=== PATIENT | male | born 1965 | race Caucasian/White ===

== ENCOUNTER 2020-12-11 10:19 | Emergency (ER) | payer OTHER, SELFPAY ==
[2020-12-11 10:20] VITALS: BP 148/93; PULSE 64; RESP 21; TEMP 36.9; O2SAT 98; BMI 29.0
--- NOTE | 2020-12-11 10:50 | HMH.EDUTC ---
[facility] [place] Impression: Laceration Disposition: Home, Self-Care Condition on Discharge: Good Instructions: Laceration Repair, DI for Laceration Repair -- Simple Additional Instructions: Suture instructions: You have required stitches Please read the following instructions so you know how to care for them: 1. Keep wound area dry for the first 24 hours. 2 May clean gently with mild soap and water, after 48 hours to prevent crusting over suture knots. 3. You may shower if your provider gives permission but do not take a bath until the skin is healed.. 4. Never leave a wet dressing or Band-Aid on your stitches as this allows bacteria to reach the area and may cause infection. Band-aids can cause the wound to sweat and not recommended to wear for long periods of time Watch for signs of infection: Increasing redness, tenderness or warmth around the suture site Unusual swelling around the site Appearance of pus around each suture or any red streaks Fever If you develop any of the above signs or symptoms of infection, Follow up with Family Physician immediately 5. Suture removal in __7__days 6. Return to [facility] or follow up with family doctor for removal. This can be done by any medical provider during regular hours on Friday through Friday, by appointment. Referrals: Kurt Vásquez MD [Primary Care Provider] - As needed Time of Disposition: 11:41 Medical Decision Making - Luis Inquiry Pt receiving controlled substance: No Luis was queried for this patient: No Vital Signs: 12/11/20 10:20 12/11/20 11:48 Temperature 98.4 F 98.4 F Temperature Source Oral Pulse Rate 64 Pulse Rate [Right Brachial] 64 Respiratory Rate 21 21 Blood Pressure 148/93 H Blood Pressure [Right Arm] 148/93 H Blood Pressure Mean [Right Arm] 111 Blood Pressure Source [Right Arm] Automatic Cuff Blood Pressure Position [Right Arm] Sitting 02 Sat by Pulse Oximetry 98 Oxygen Delivery Method Room Air Orders (Tests/Meds): ED MEDICATIONS Discontinued Medications Generic Name Dose Route Start Last Admin Trade Name Freq PRN Reason Stop Dose Admin Tetanus/Reduced Diphtheria/Acell Pertussis 0.5 ml 12/11/20 10:37 12/11/20 10:40 Tet/Diphth/Pert-Adult 0.5ml Syringe IM 12/11/20 10:38 0.5 ml .ONCE ONE Administration [facility] [place] - General Stated complaint: ao head laceration 12/11/20 Time Seen by Provider: 12/11/20 10:50 Mode of Arrival: Ambulatory Source of Information: Patient Limitations: No Limitations Description of Symptoms (Recalled from Triage Doc. by RN): PATIENT C/O LACERATION TO HEAD AFTER BOARD FELL ON IT THIS AM. HE IS NOT UP TO DATE ON TDAP HEENT Symptoms (Recalled from RN notes): Yes Resp Symptoms (Recalled from RN notes): No Skin Symptoms (Recalled from RN notes): Yes MS Symptoms (Recalled from RN notes): No Functional Status (Recalled from RN notes): WNL - History of Present Illness Provider Complaint: Patient states that he was pulling a board down when the corner of the board struck him in the top of his head on the right side States that at first he didnt realize he was cut but felt something warm and noticed he had blood running down his face and noticed he had a cut States that he immediately applied pressure and came in Denies LOC denies vision problems - Related Data Home Medications Medication Instructions Recorded Confirmed naproxen sodium 220 mg capsule 220 mg PO Q12H 11/15/19 12/11/20 Previous Rx's Medication Instructions Recorded empagliflozin 10 mg tablet 10 mg PO DAILY #30 tab 11/15/19 cholecalciferol (vitamin D3) 1,250 See Rx Instructions .ROUTE 06/26/20 mcg (50,000 unit) capsule .COMPLEX #7 cap cholecalciferol (vitamin D3) 50 See Rx Instructions .ROUTE 06/26/20 mcg (2,000 unit) capsule .COMPLEX #90 cap glipizide 2.5 mg tablet, extended See Rx Instructions .ROUTE 10/31/20 release 24 hr .COMPLEX #90 tab amlodipine 5 mg tablet See Rx Instructions .ROUTE 12/07
[2020-12-11 11:48] VITALS: BP 148/93; PULSE 64; RESP 21; TEMP 36.9; O2SAT 98
== END 2020-12-11 11:50 | disposition home or self-care (01) ==
PROVIDERS: Emergency Provider Nurse Practitioner; PCP Emergency Medicine
DX: S01.01XA Laceration without foreign body of scalp, initial encounter (principal); Z23 Encounter for immunization; W22.8XXA Striking against or struck by other objects, initial encounter; Y92.89 Other specified places as the place of occurrence of the external cause; I10 Essential (primary) hypertension; E78.5 Hyperlipidemia, unspecified; E11.9 Type 2 diabetes mellitus without complications; Z79.84 Long term (current) use of oral hypoglycemic drugs; Z79.899 Other long term (current) drug therapy
CPT/HCPCS: 12001; 90471; 90715; 99202; G0463

== ENCOUNTER → 2020-12-11 13:19 | Outpatient (CLI) | payer OTHER, SELFPAY ==
[2020-12-11 13:36] LABS: Basophils # 0.1 K/mm3 (0-0.2); Eosinophils # 0.1 K/mm3 (0.0-0.4); Eosinophils % 1.3 % (0.1-12.0); Hematocrit 39.6 % (42.0-52.0); Hemoglobin 13.7 g/dL (14.1-18.0); Lymphocytes # 1.7 K/mm3 (0.7-4.5); Lymphocytes % 21.6 % (10-50); Mean Corpuscular HGB Conc 34.6 g/dL (31.8-35.4); Mean Corpuscular Hemoglobin 30.4 pg (27.0-31.2); Mean Corpuscular Volume 87.9 fl (80-94); Mean Platelet Volume 8.5 fl (7.4-10.4); Monocytes # 0.4 K/mm3 (0.1-1.0); Monocytes % 5.5 % (1.7-9.3); Neutrophils # 5.5 K/mm3 (1.8-7.8); Neutrophils % 70.7 % (37.0-80.0); Platelet Count 330 K/mm3 (142-424); Red Blood Count 4.51 M/mm3 (4.60-6.20); Red Cell Distribution Width 13.1 % (11.5-17.5); White Blood Count 7.7 K/mm3 (4.8-10.8)
[2020-12-11 13:41] LABS: Alanine Aminotransferase 18 U/L (12-78); Albumin Level 4.3 g/dl (3.5-5.0); Albumin/Globulin Ratio 1.6 (1.1-1.8); Alkaline Phosphatase 88 U/L (38-126); Anion Gap 14.5 mEq/L (5-15); Aspartate Amino Transferase 23 U/L (17-59); Bilirubin,Total 0.3 mg/dl (0.2-1.3); Blood Urea Nitrogen 27 mg/dl (9-20); Calcium 9.3 mg/dl (8.4-10.2); Carbon Dioxide 27 mmol/L (22.0-30.0); Chloride 104 mmol/L (98-107); Chol/HDL Ratio 4.3 (1-3.5); Cholesterol 137 mg/dl (140-200); Estimated Glomerular Filt Rate 141 ml/min (>60); GFR (African American) 171 ML/MIN (>60); Globulin 2.7 g/dL (1.3-3.2); Glucose 160 mg/dl (74-100); HDL Cholesterol 32 mg/dl (40-60); Potassium 4.5 mmoL/L (3.5-5.1); Sodium 141 mmol/L (136-145); Triglycerides 150 mg/dl (30-150); VLDL Cholesterol 30 mg/dL (0-40)
[2020-12-11 13:52] LABS: Direct LDL Cholesterol 71.49 mg/dL (100-129)
[2020-12-11 14:12] LABS: Prostate Specific Ag Screen 0.5 ng/ml (0.0-4.0); Thyroid Stimulating Hormone 1.98 uIU/mL (0.465-4.68)
[2020-12-11 15:05] LABS: Hemoglobin A1C 5.7 % (4.0-6.0)
== END ==
PROVIDERS: Visit Provider Family Medicine
DX: Z00.00 Encounter for general adult medical examination without abnormal findings (principal); Z12.5 Encounter for screening for malignant neoplasm of prostate; E11.9 Type 2 diabetes mellitus without complications; I10 Essential (primary) hypertension; E78.5 Hyperlipidemia, unspecified; Z79.84 Long term (current) use of oral hypoglycemic drugs
CPT/HCPCS: 80053; 80061; 83036; 84443; 85025; G0103

== ENCOUNTER → 2022-08-16 10:59 | Outpatient (CLI) | payer OTHER, SELFPAY ==
[2022-08-16 18:00] LABS: Adenovirus,PCR Not Detected (NotDetected); Bordetella Pertussis Not Detected (NotDetected); Chlamydophila Pneumoniae, PCR Not Detected (NotDetected); Coronavirus 19, PCR Not Detected (NotDetected); Coronavirus 229E Not Detected (NotDetected); Coronavirus NL63 Not Detected (NotDetected); Coronavirus OC43 Not Detected (NotDetected); Coronovirus HKU1,PCR Not Detected (NotDetected); Human Metapneumovirus Not Detected (NotDetected); Influenza A, PCR Not Detected (NotDetected); Influenza AH1, 2009 Not Detected (NotDetected); Influenza AH1, PCR Not Detected (NotDetected); Influenza AH3,PCR Not Detected (NotDetected); Influenza B, PCR Not Detected (NotDetected); Mycoplasma Pneumoniae, PCR Not Detected (NotDetected); Parainfluenza 1, PCR Not Detected (NotDetected); Parainfluenza 2, PCR Not Detected (NotDetected); Parainfluenza 3, PCR Not Detected (NotDetected); Parainfluenza 4, PCR Not Detected (NotDetected); Respiratory Syncytial Virus Not Detected (NotDetected); Rhinovirus/Enterovirus Not Detected (NotDetected)
== END ==
PROVIDERS: PCP Nurse Practitioner Family; Visit Provider Nurse Practitioner Family
DX: R06.09 Other forms of dyspnea (principal); R50.9 Fever, unspecified; R05.9 Cough, unspecified; R09.89 Other specified symptoms and signs involving the circulatory and respiratory systems; R53.83 Other fatigue; R11.0 Nausea
CPT/HCPCS: 87581; 87632; 87798; C9803; U0003; U0005

== ENCOUNTER → 2022-08-26 17:56 | Outpatient (CLI) | payer OTHER, SELFPAY ==
[2022-08-26 18:50] LABS: Basophils # 0.1 K/mm3 (0-0.2); Basophils % 0.8 % (0.1-2.0); Eosinophils # 0.1 K/mm3 (0.0-0.4); Eosinophils % 0.7 % (0.1-12.0); Hematocrit 43.8 % (42.0-52.0); Hemoglobin 13.9 g/dL (14.1-18.0); Lymphocytes # 2.2 K/mm3 (0.7-4.5); Lymphocytes % 18.5 % (10-50); Mean Corpuscular HGB Conc 31.7 g/dL (31.8-35.4); Mean Corpuscular Hemoglobin 29.5 pg (27.0-31.2); Mean Corpuscular Volume 93.1 fl (80-94); Mean Platelet Volume 8.2 fl (7.4-10.4); Monocytes # 0.5 K/mm3 (0.1-1.0); Monocytes % 4.1 % (1.7-9.3); Neutrophils # 8.8 K/mm3 (1.8-7.8); Neutrophils % 75.9 % (37.0-80.0); Platelet Count 341 K/mm3 (142-424); Red Cell Distribution Width 13.1 % (11.5-17.5); White Blood Count 11.6 K/mm3 (4.8-10.8)
[2022-08-26 19:14] LABS: Hemoglobin A1C 8.3 % (4.0-6.0)
[2022-08-26 19:19] LABS: Chloride 104 mmol/L (98-107)
[2022-08-26 19:20] LABS: Potassium 4.8 mmoL/L (3.5-5.1); Sodium 136 mmol/L (136-145)
[2022-08-26 19:22] LABS: Blood Urea Nitrogen 26 mg/dl (9-20); Estimated Glomerular Filt Rate 88 ml/min (>60); GFR (African American) 106 ML/MIN (>60)
[2022-08-26 19:23] LABS: Alanine Aminotransferase 42 U/L (12-78); Albumin Level 4.5 g/dl (3.5-5.0); Albumin/Globulin Ratio 1.6 (1.1-1.8); Alkaline Phosphatase 137 U/L (38-126); Anion Gap 17.8 mEq/L (5-15); Aspartate Amino Transferase 29 U/L (17-59); Bilirubin,Total 0.4 mg/dl (0.2-1.3); Calcium 9.6 mg/dl (8.4-10.2); Carbon Dioxide 19 mmol/L (22.0-30.0); Chol/HDL Ratio 4.5 (1-3.5); Cholesterol 161 mg/dl (140-200); Globulin 2.9 g/dL (1.3-3.2); Glucose 303 mg/dl (74-100); HDL Cholesterol 36 mg/dl (40-60); Total Protein,Serum 7.4 g/dl (6.3-8.2); Triglycerides 356 mg/dl (30-150); VLDL Cholesterol 71 mg/dL (0-40)
[2022-08-26 19:49] LABS: T4 (Thyroxine) 7.8 ug/dl (5.53-11.0)
[2022-08-26 19:50] LABS: Direct LDL Cholesterol 80.47 mg/dL (100-129)
[2022-08-26 20:02] LABS: Thyroid Stimulating Hormone 2.07 uIU/mL (0.465-4.68)
[2022-08-26 20:17] LABS: Microalbumin/Creatinine Ratio 9.1
[2022-08-26 20:36] LABS: Creatinine,Urine Random 152 mg/dL (Not Estab.)
[2022-08-26 22:26] LABS: Prostate Specific Ag Screen 1.4 ng/ml (0.0-4.0)
== END ==
PROVIDERS: PCP Emergency Medicine; Visit Provider Emergency Medicine
DX: Z00.00 Encounter for general adult medical examination without abnormal findings (principal); E11.9 Type 2 diabetes mellitus without complications; I10 Essential (primary) hypertension; E78.5 Hyperlipidemia, unspecified; E66.9 Obesity, unspecified; Z68.33 Body mass index [BMI] 33.0-33.9, adult; Z79.84 Long term (current) use of oral hypoglycemic drugs
CPT/HCPCS: 80053; 80061; 82043; 82306; 82570; 83036; 84436; 84443; 85025; G0103

== ENCOUNTER 2023-01-16 20:18 | Emergency (ER) | payer OTHER, SELFPAY ==
[2023-01-16 20:20] VITALS: BP 117/62; PULSE 70; RESP 20; TEMP 36.9; O2SAT 98; BMI 34.4
--- NOTE | 2023-01-16 21:17 | HMH.EDGENADL ---
Discharge Plan Disposition Patient Disposition: Home, Self-Care Condition: Good Prescriptions Prescriptions: No Action naproxen sodium [Aleve] 220 mg capsule 220 mg PO Q12H Jardiance 10 mg tablet 10 mg PO DAILY Qty: 30 2RF ondansetron 4 mg tablet,disintegrating 4 mg PO Q8H PRN (Reason: nausea and vomiting) Qty: 30 0RF levofloxacin 750 mg tablet 750 mg PO DAILY 5 Days Qty: 5 0RF simvastatin 20 mg tablet See Rx Instructions .ROUTE .COMPLEX Qty: 90 3RF Dose Instruction: TAKE ONE TABLET BY MOUTH EVERY NIGHT AT BEDTIME Rx Instructions: TAKE ONE TABLET BY MOUTH EVERY NIGHT AT BEDTIME metformin 1,000 mg tablet See Rx Instructions .ROUTE .COMPLEX Qty: 60 5RF Dose Instruction: TAKE 1 TABLET BY MOUTH TWICE DAILY WITH FOOD Rx Instructions: TAKE 1 TABLET BY MOUTH TWICE DAILY WITH FOOD lisinopril 5 mg tablet See Rx Instructions .ROUTE .COMPLEX Qty: 90 3RF Dose Instruction: TAKE ONE TABLET BY MOUTH EVERY DAY Rx Instructions: TAKE ONE TABLET BY MOUTH EVERY DAY ([facility] [place]) Dexcom G7 Christian Counselor Misc See Rx Instructions .Route Qty: 1 0RF Rx Instructions: As directed (DME) Dexcom G7 Sensor Device See Rx Instructions .Route Qty: 9 3RF Rx Instructions: As directed cholecalciferol (vitamin D3) 1,250 mcg (50,000 unit) capsule 1,250 mcg PO WEEKLY Qty: 12 3RF glipizide 10 mg tablet extended release 24hr 10 mg PO DAILY Qty: 60 2RF atenolol 100 mg tablet See Rx Instructions .ROUTE .COMPLEX Qty: 90 0RF Dose Instruction: TAKE 1 TABLET BY MOUTH ONCE DAILY Rx Instructions: TAKE 1 TABLET BY MOUTH ONCE DAILY amlodipine 5 mg tablet See Rx Instructions .ROUTE .COMPLEX Qty: 90 0RF Dose Instruction: TAKE 1 TABLET BY MOUTH ONCE DAILY Rx Instructions: TAKE 1 TABLET BY MOUTH ONCE DAILY Referrals Follow up/Referrals: Kurt Vásquez MD [Primary Care Provider] - See instructions Activity Restrictions/Add. Instructions Additional Instructions/Restrictions: At this time was felt you are safe to be discharged home. If new or worsening symptoms such as signs of infection please do not hesitate to return the emergency department. Please keep your splint on for 10 days and follow-up with your family doctor for suture removal. Clinical Impressions Clinical Impression: Laceration of finger Discharge ED Provider: Del Love General Adult HPI General Chief complaint: Wound/Laceration Stated complaint: [id number]/24@[id number] LT middle finger Time Seen by Provider: 01/16/23 21:01 Mode of Arrival: Ambulatory Source of Information: Patient Limitations: No Limitations Description of Symptoms (Recalled from ER Triage Doc. by RN): Patient states he was using pocket knife this evening and slipped and cut his middle finger on left hand, lacteration present. History of Present Illness HPI narrative: Patient is a 57-year-old left-handed male who presents emergency department for evaluation of a laceration sustained with a knife to his left distal long finger. Happened prior to arrival, tetanus is up-to-date. No other acute traumatic complaints at this time Related Data Home Medications Medication Instructions Recorded Confirmed naproxen sodium 220 mg capsule 220 mg PO Q12H 11/15/19 09/09/22 (Aleve) Previous Rx's Medication Instructions Recorded empagliflozin 10 mg tablet 10 mg PO DAILY #30 tabs 11/15/19 (Jardiance) ondansetron 4 mg disintegrating 4 mg PO Q8H PRN nausea and 08/16/22 tablet vomiting #30 tabs blood-glucose meter,continuous #1 ea 08/26/22 (Dexcom G7 Christian Counselor) blood-glucose sensor (Dexcom G7 #9 ea 08/26/22 Sensor device) lisinopril 5 mg tablet See Rx Instructions .Route 08/26/22 .COMPLEX #90 tabs metformin 1,000 mg tablet See Rx Instructions .Route 08/26/22 .COMPLEX #60 tabs simvastatin 20 mg tablet See Rx Instructions .Route 08/26/22 .COMPLEX #90 tabs cholecalciferol (vi
[2023-01-16 22:00] VITALS: BP 127/70; PULSE 65; RESP 16; TEMP 36.7; O2SAT 98
--- NOTE | 2023-01-16 22:07 | PC.NURSE ---
Pt left middle finger cleansed with soap and water, bacitracin applied, wrapped with non adherent bandage, finger placed in splint and wrapped with curlex. Pt educated on care and cleaning.
== END 2023-01-16 22:05 | disposition home or self-care (01) ==
PROVIDERS: Emergency Provider Emergency Medicine; PCP Emergency Medicine
DX: S61.213A Laceration without foreign body of left middle finger without damage to nail, initial encounter (principal); W26.0XXA Contact with knife, initial encounter
CPT/HCPCS: 99283

== ENCOUNTER 2023-08-18 18:56 | Outpatient (CLI) | payer OTHER, SELFPAY ==
[2023-08-18 19:00] LABS: Basophils # 0.1 K/mm3 (0-0.2); Basophils % 0.9 % (0.1-2.0); Eosinophils # 0.1 K/mm3 (0.0-0.4); Hematocrit 43.2 % (42.0-52.0); Hemoglobin 14.5 g/dL (14.1-18.0); Lymphocytes % 26.8 % (10-50); Mean Corpuscular HGB Conc 33.6 g/dL (31.8-35.4); Mean Corpuscular Hemoglobin 31.5 pg (27.0-31.2); Mean Corpuscular Volume 93.9 fl (80-94); Mean Platelet Volume 8.9 fl (7.4-10.4); Monocytes # 0.5 K/mm3 (0.1-1.0); Monocytes % 6.5 % (1.7-9.3); Neutrophils # 4.9 K/mm3 (1.8-7.8); Neutrophils % 64.8 % (37.0-80.0); Platelet Count 296 K/mm3 (142-424); Red Cell Distribution Width 13.2 % (11.5-17.5); White Blood Count 7.6 K/mm3 (4.8-10.8)
[2023-08-18 19:17] LABS: Creatinine,Urine Random 249 mg/dL (Not Estab.)
[2023-08-18 19:50] LABS: Hemoglobin A1C 7.9 % (4.0-6.0)
[2023-08-18 19:54] LABS: Thyroid Stimulating Hormone 1.85 uIU/mL (0.465-4.68)
== END 2023-08-18 23:59 ==
LOC: LAB.DROPOF 18:56
PROVIDERS: PCP Internal Medicine; Visit Provider Internal Medicine
DX: E11.42 Type 2 diabetes mellitus with diabetic polyneuropathy (principal); Z79.84 Long term (current) use of oral hypoglycemic drugs
CPT/HCPCS: 82043; 82570; 83036; 84443; 85025

== ENCOUNTER 2023-11-10 18:00 | Outpatient (CLI) | payer OTHER, SELFPAY ==
[2023-11-10 18:25] LABS: Alanine Aminotransferase 46 U/L (12-78); Albumin Level 4.8 g/dl (3.5-5.0); Albumin/Globulin Ratio 1.6 (1.1-1.8); Alkaline Phosphatase 91 U/L (38-126); Anion Gap 20.5 mEq/L (5-15); Aspartate Amino Transferase 34 U/L (17-59); Bilirubin,Total 0.5 mg/dl (0.2-1.3); Blood Urea Nitrogen 20 mg/dl (9-20); Calcium 10.7 mg/dl (8.4-10.2); Carbon Dioxide 24 mmol/L (22.0-30.0); Chloride 101 mmol/L (98-107); Chol/HDL Ratio 4.8 (1-3.5); Cholesterol 179 mg/dl (140-200); Estimated Glomerular Filt Rate 69 ml/min (>60); GFR (African American) 84 ML/MIN (>60); Glucose 276 mg/dl (74-100); HDL Cholesterol 37 mg/dl (40-60); Potassium 4.5 mmoL/L (3.5-5.1); Sodium 141 mmol/L (136-145); Total Protein,Serum 7.8 g/dl (6.3-8.2); Triglycerides 260 mg/dl (30-150); VLDL Cholesterol 52 mg/dL (0-40)
[2023-11-10 18:35] LABS: Direct LDL Cholesterol 95.68 mg/dL (100-129)
[2023-11-10 18:44] LABS: 25-OH Vitamin D, Total 64.5 ng/mL (30-100)
[2023-11-10 18:58] LABS: Prostate Specific Ag Screen 0.5 ng/ml (0.0-4.0)
== END 2023-11-10 23:59 | disposition home or self-care (01) ==
LOC: LAB.DROPOF 11-11 08:25
PROVIDERS: Visit Provider Family Medicine
DX: Z12.5 Encounter for screening for malignant neoplasm of prostate (principal); R79.89 Other specified abnormal findings of blood chemistry; Z68.35 Body mass index [BMI] 35.0-35.9, adult; E66.9 Obesity, unspecified
CPT/HCPCS: 80053; 80061; 82306; G0103

== ENCOUNTER 2024-03-29 14:11 | Emergency (ER) | payer OTHER, SELFPAY ==
[2024-03-29 14:13] VITALS: BP 125/86; PULSE 93; RESP 20; TEMP 37; O2SAT 97; BMI 32.5
--- NOTE | 2024-03-29 14:30 | ED_ITS ---
Discharge Plan Disposition Patient Disposition: Home, Self-Care Condition: Good Prescriptions Prescriptions: New cephalexin 500 mg capsule 500 mg PO BID 7 Days Qty: 14 0RF hydrocodone-acetaminophen 5-325 mg tablet 1 tab PO Q6H PRN (Reason: pain) 3 Days Qty: 12 0RF No Action naproxen sodium [Aleve] 220 mg capsule 220 mg PO Q12H ondansetron 4 mg tablet,disintegrating 4 mg PO Q8H PRN (Reason: nausea and vomiting) Qty: 30 0RF (DME) FreeStyle Brodie 14 Day [place] Misc See Rx Instructions .Route Qty: 1 3RF Rx Instructions: As directed or bid amlodipine 5 mg tablet 5 mg PO DAILY 90 Days Qty: 90 4RF (DME) FreeStyle Brodie 14 Day Sensor Kit See Rx Instructions .Route Qty: 1 2RF Rx Instructions: As directed or bid atenolol 100 mg tablet 100 mg PO DAILY 90 Days Qty: 90 4RF cholecalciferol (vitamin D3) 1,250 mcg (50,000 unit) capsule 1,250 mcg PO WEEKLY Qty: 12 3RF Jardiance 10 mg tablet 10 mg PO DAILY 90 Days Qty: 90 4RF glipizide 10 mg tablet extended release 24hr 10 mg PO DAILY 90 Days Qty: 90 4RF metformin 1,000 mg tablet 1,000 mg PO BID 90 Days Qty: 180 4RF simvastatin 20 mg tablet See Rx Instructions .ROUTE .COMPLEX Qty: 90 3RF Dose Instruction: TAKE ONE TABLET BY MOUTH EVERY NIGHT AT BEDTIME Rx Instructions: TAKE ONE TABLET BY MOUTH EVERY NIGHT AT BEDTIME lisinopril 5 mg tablet See Rx Instructions .ROUTE .COMPLEX Qty: 90 3RF Dose Instruction: TAKE ONE TABLET BY MOUTH EVERY DAY Rx Instructions: TAKE ONE TABLET BY MOUTH EVERY DAY fluticasone propionate 50 mcg/actuation spray,suspension 1 spray intranasal DAILY PRN (Reason: allergy symptoms) Qty: 16 1RF Rx Instructions: administer into each nostril cetirizine [All Day Allergy (cetirizine)] 10 mg tablet 10 mg PO DAILY PRN (Reason: allergy symptoms) Qty: 30 3RF Referrals Follow up/Referrals: Darlene Arroyo APRN [Primary Care Provider] - See instructions John Tristan DO [Staff Physician] - See instructions Activity Restrictions/Add. Instructions Additional Instructions/Restrictions: Please call in the morning to make your appointment with Dr. Tristan. Keep the open wound covered with Xeroform gauze. Follow-up with your PCP for no improvement or worsening signs or symptoms. You have also been started on Keflex. Please take till the medication is gone. Clinical Impressions Clinical Impression: Avulsion of fingertip Qualifiers: Encounter type: initial encounter Qualified Code(s): S61.209A - Unspecified open wound of unspecified finger without damage to nail, initial encounter Instructions Patient Instructions: DI for Laceration Repair Print Language Print Language: Danish Discharge ED Provider: Jarod Garzon General Adult HPI <GIOVANNY Hussein - Last Filed: 03/29/24 15:51> General Chief complaint: Wound/Laceration Stated complaint: [id number]- laceration to L middle finger Time Seen by Provider: 03/29/24 14:30 Mode of Arrival: Ambulatory Source of Information: Patient Limitations: No Limitations Description of Symptoms (Recalled from ER Triage Doc. by RN): pt was working with concrete and had left middle finger smashed abd fat pad is missing off the end, bleeding is controlled and patient is UTD on tetnus shot, edges are not approxiamate History of Present Illness HPI narrative: Patient presents for evaluation of left third digit injury. Patient was working with concrete block and his finger got pinched between 2 blocks. He avulsed the distal fat pad. He denies any other injury still has full range of motion is neurovascular intact proximal to the injury. Related Data Home Medications ?Medication ?Instructions ?Recorded ?Confirmed naproxen sodium 220 mg capsule 220 mg PO Q12H 11/15/19 03/30/24 (Aleve) Previous Rx's ?Medication ?Instructions ?Recorded ondansetron 4 mg disintegrating 4 mg PO Q8H PRN nausea and 08/16/22 tablet vomiting #30 tabs amlodipine 5 mg tablet 5 mg PO DAILY 90 days #90 tabs 08/18/23 atenolol 100 mg tablet 100 mg PO DAILY 90 days #90 tabs 08/18/23 cholecalciferol (vitamin D3) 1,250 1,250 mcg PO WEEKLY vitamin d 08/18/23 mcg (50,000 unit) capsule deficiency #12 caps empagliflozin 10 mg tablet 10 mg PO DAILY 90 days #90 tabs 08/18/23 (Jardiance) flash glucose scanning reader #1 ea 08/18/23 (FreeStyle Brodie 14 Day [place]) flash glucose sensor (FreeStyle #1 ea 08/18/23 Brodie 14 Day Sensor kit) glipizide 10 mg tablet, extended 10 mg PO DAILY 90 days #90 tabs 08/18/23 release 24 hr lisinopril 5 mg tablet See Rx Instructions .Route 08/18/23 .COMPLEX #90 tabs metformin 1,000 mg tablet 1,000 mg PO BID 90 days #180 tabs 08/18/23 simvastatin 20 mg tablet See Rx Instructions .Route 08/18/23 .COMPLEX #90 tabs cetirizine 10 mg tablet (All Day 10 mg PO DAILY PRN allergy 11/10/23 Allergy (cetirizine)) symptoms #30 tabs fluticasone propionate 50 1 spray intranasal DAILY PRN 11/10/23 mcg/actuation nasal allergy symptoms #16 grams spray,suspension cephalexin 500 mg capsule 500 mg PO BID 7 days #14 caps 03/29/24 hydrocodone 5 mg-acetaminophen 325 1 tab PO Q6H PRN pain 3 days #12 03/29/24 mg tablet tabs Allergies Allergy/AdvReac Type Severity Reaction Status Date / Time No Known Allergies Allergy Verified 03/30/24 12:02 [facility] <GIOVANNY Hussein - Last Filed: 03/29/24 15:51> [facility] Disclaimer: The information contained in this section may have been updated after the patient was seen, as this information can be updated by other users. Social History Smoking Status: Never smoker alcohol intake: never substance use type: denies use current occupational status: other Travel in the last 8 weeks: None Other Medical History Have you received the Pneumonia Vaccine: No <GIOVANNY Hussein - Last Filed: 03/29/24 15:51> ROS Obtained: Yes Systems reviewed as appropriate & no additional complaints except as documented Physical Exam <GIOVANNY Hussein - Last Filed: 03/29/24 15:51> General General appearance: alert and in no apparent distress Respiratory Respiratory exam: Present normal lung sounds bilaterally Cardiovascular Cardiovascular exam: Present regular rate Neurological Exam Neurological exam: Present alert and oriented X3 Medical Decision Making <GIOVANNY Hussein - Last Filed: 03/29/24 15:51> Medical Records Medical records reviewed: Yes I reviewed the patient's medical records. Screening: Per USPSTF and CDC recommendations, given the prevalence of disease in our region, it is our hospital?s policy to screen for HIV and viral Hepatitis for all patients aged 18 and over and those with ongoing risk factors. Luis Inquiry Pt receiving controlled substance: No Vital Signs: 03/29/24 14:13 03/29/24 16:03 Temperature 98.6 F 98.6 F Temperature Source Oral Oral Pulse Rate 93 H Pulse Rate [Right Radial] 93 H Respiratory Rate 20 20 Blood Pressure 125/86 Blood Pressure [Right Arm] 125/86 Blood Pressure Mean [Right Arm] 99 Blood Pressure Source Automatic Cuff Blood Pressure Position Sitting 02 Sat by Pulse Oximetry 97 Oxygen Delivery Method Room Air Room Air Lab Data Lab results reviewed: Yes I reviewed the patient's lab results. Orders (Tests/Meds): ED MEDICATIONS Discontinued Medications Generic Name Dose Route Start Last Admin Trade Name Brandon PRN Reason Stop Dose Admin Acetaminophen 1,000 mg 03/29/24 14:32 03/29/24 15:18 Acetaminophen 500mg Tab PO 03/29/24 14:33 1,000 mg ONCE ONE Administration Cephalexin HCl 500 mg 03/29/24 14:32 03/29/24 15:18 Cephalexin 500mg Capsule PO 03/29/24 14:33 500 mg ONCE ONE Administration Lidocaine/Epinephrine 20 ml 03/29/24 14:32 03/29/24 15:19 Lidocaine 1% W/Epi 1:100,000 20ml Vial SQ 03/29/24 14:33 20 ml ONCE ONE Administration Oxycodone HCl 5 mg 03/29/24 14:32 03/29/24 15:18 Oxycodone 5mg Immediate Release Tablet PO 03/29/24 14:33 5 mg ONCE ONE Administration Silver Nitrate 3 each 03/29/24 14:37 03/29/24 15:19 Silver Nitrate Applicator TP 03/29/24 14:38 3 each ONCE ONE Administration ORDERS Category Date Time Status Finger XR left minimum 2 views [XR finger LT min 2V] Exams 03/29/24 14:36 Completed Stat Medical Decision Narrative: In summary patient is a 58-year-old male who presents to the emergency department for evaluation of left third digit injury. Patient is hemodynamically stable upon arrival, afebrile. Physical exam is remarkable for an avulsion injury of the distal fat pad of the left third digit. Nail is intact. Bone is visible. Differential diagnosis includes avulsion versus open fracture. Initial workup will be conducted with plain film x-rays. Initial interventions include Tylenol and oxycodone. Initial workup reviewed by me shows that he does not have any fracture on x-ray via my informal interpretation. Upon repeat evaluation patient was soaked in lidocaine with epi and has good topical anesthesia. Reevaluation shows that he partially avulsed the nail from the nailbed but it is still attached at the matrix with no trauma. Given this the wound was fulgurated with silver nitrate, Xeroform gauze was applied and long finger splint to protect. I had an interactive discussion with Dr. Tristan of orthopedics and he will be seen in clinic. Patient is appropriate for discharge with prescription for Keflex with first dose given now. <Jarod Garzon MD - Last Filed: 03/30/24 15:10> Vital Signs: 03/29/24 14:13 03/29/24 16:03 Temperature 98.6 F 98.6 F Temperature Source Oral Oral Pulse Rate 93 H Pulse Rate [Right Radial] 93 H Respiratory Rate 20 20 Blood Pressure 125/86 Blood Pressure [Right Arm] 125/86 Blood Pressure Mean [Right Arm] 99 Blood Pressure Source Automatic Cuff Blood Pressure Position Sitting 02 Sat by Pulse Oximetry 97 Oxygen Delivery Method Room Air Room Air Orders (Tests/Meds): ED MEDICATIONS Discontinued Medications Generic Name Dose Route Start Last Admin Trade Name Brandon PRN Reason Stop Dose Admin Acetaminophen 1,000 mg 03/29/24 14:32 03/29/24 15:18 Acetaminophen 500mg Tab PO 03/29/24 14:33 1,000 mg ONCE ONE Administration Cephalexin HCl 500 mg 03/29/24 14:32 03/29/24 15:18 Cephalexin 500mg Capsule PO 03/29/24 14:33 500 mg ONCE ONE Administration Lidocaine/Epinephrine 20 ml 03/29/24 14:32 03/29/24 15:19 Lidocaine 1% W/Epi 1:100,000 20ml Vial SQ 03/29/24 14:33 20 ml ONCE ONE Administration Oxycodone HCl 5 mg 03/29/24 14:32 03/29/24 15:18 Oxycodone 5mg Immediate Release Tablet PO 03/29/24 14:33 5 mg ONCE ONE Administration Silver Nitrate 3 each 03/29/24 14:37 03/29/24 15:19 Silver Nitrate Applicator TP 03/29/24 14:38 3 each ONCE ONE Administration ORDERS Category Date Time Status Finger XR left minimum 2 views [XR finger LT min 2V] Exams 03/29/24 14:36 Completed Stat Medical Decision Narrative: In summary patient is a 58-year-old male who presents to the emergency department for evaluation of left third digit injury. Patient is hemodynamically stable upon arrival, afebrile. Physical exam is remarkable for an avulsion injury of the distal fat pad of the left third digit. Nail is intact. Bone is visible. Differential diagnosis includes avulsion versus open fracture. Initial workup will be conducted with plain film x-rays. Initial interventions include Tylenol and oxycodone. Initial workup reviewed by me shows that he does not have any fracture on x-ray via my informal interpretation. Upon repeat evaluation patient was soaked in lidocaine with epi and has good topical anesthesia. Reevaluation shows that he partially avulsed the nail from the nailbed but it is still attached at the matrix with no trauma. Given this the wound was fulgurated with silver nitrate, Xeroform gauze was applied and long finger splint to protect. I had an interactive discussion with Dr. Tristan of orthopedics and he will be seen in clinic. Patient is appropriate for discharge with prescription for Keflex with first dose given now. I was consulted by the KATHRYN, and we discussed the complexity of the problems being addressed. I approved the treatment and management plan for this patient's care in the Emergency Department, thus performing a substantive portion of the medical decision making. Jarod Garzon MD Critical Care <GIOVANNY Hussein - Last Filed: 03/29/24 15:51> Critical Care Time Critical Care Time: No
--- NOTE | 2024-03-29 14:36 | XR_ITS ---
PROCEDURE INFORMATION: Exam: XR Left Finger(s) Exam date and time: 03/29/2024 3:03 PM Age: 58 years old Clinical indication: Injury or trauma; Other: Crushing injury; Left; Middle finger; Additional info: Third digit crush injury TECHNIQUE: Imaging protocol: Radiologic exam of the left fingers. Views: Minimum 2 views. COMPARISON: No relevant prior studies available. FINDINGS: Bones/joints: See Soft tissues finding. Soft tissues: Soft tissue amputation of the distal aspect of the 3rd finger just distal to the tuft of the distal phalange. No underlying fracture seen. IMPRESSION: Soft tissue injury of the distal 3rd finger.
[2024-03-29] MEDS: cephALEXin 500MG CAPSULE 500 MG PO (15:18)
[2024-03-29] MEDS: OXYCODONE 5MG IMMEDIATE RELEASE TABLET 5 MG PO (15:18)
[2024-03-29] MEDS: ACETAMINOPHEN 500MG TAB 1000 MG PO (15:18)
[2024-03-29] MEDS: SILVER NITRATE APPLICATOR 3 EACH TP (15:19)
[2024-03-29] MEDS: LIDOCAINE 1% W/EPI 1:100,000 20ML VIAL 20 ML SQ (15:19)
[2024-03-29 16:03] VITALS: BP 125/86; PULSE 93; RESP 20; TEMP 37; O2SAT 97
== END 2024-03-29 16:04 | disposition home or self-care (01) ==
PROVIDERS: Emergency Provider Emergency Medicine; PCP Family Medicine
DX: S61.203A Unspecified open wound of left middle finger without damage to nail, initial encounter (principal); M79.645 Pain in left finger(s); W23.0XXA Caught, crushed, jammed, or pinched between moving objects, initial encounter; Y93.89 Activity, other specified; Y92.9 Unspecified place or not applicable
CPT/HCPCS: 73140; 99283

== ENCOUNTER 2024-08-16 10:46 | Outpatient (CLI) | payer OTHER, SELFPAY ==
[2024-08-16 19:58] LABS: Basophils % 0.5 % (0.1-2.0); Eosinophils # 0.1 K/mm3 (0.0-0.4); Eosinophils % 1.2 % (0.1-12.0); Hematocrit 40.7 % (42.0-52.0); Lymphocytes % 25.6 % (10-50); Mean Corpuscular HGB Conc 34.4 g/dL (31.8-35.4); Mean Corpuscular Hemoglobin 30.6 pg (27.0-31.2); Mean Corpuscular Volume 89.1 fl (80-94); Mean Platelet Volume 10.2 fl (7.4-10.4); Monocytes # 0.6 K/mm3 (0.1-1.0); Monocytes % 7.2 % (1.7-9.3); Neutrophils % 65.2 % (37.0-80.0); Platelet Count 278 K/mm3 (142-424); Red Blood Count 4.57 M/mm3 (4.60-6.20); Red Cell Distribution Width 11.6 % (11.5-17.5); White Blood Count 7.7 K/mm3 (4.8-10.8)
[2024-08-16 20:45] LABS: Alanine Aminotransferase 31 U/L (12-78); Albumin Level 4.8 g/dl (3.5-5.0); Albumin/Globulin Ratio 1.7 (1.1-1.8); Alkaline Phosphatase 74 U/L (38-126); Anion Gap 9.8 mEq/L (5-15); Aspartate Amino Transferase 25 U/L (17-59); Bilirubin,Total 0.5 mg/dl (0.2-1.3); Blood Urea Nitrogen 17 mg/dl (9-20); Calcium 11.9 mg/dl (8.4-10.2); Carbon Dioxide 31 mmol/L (22.0-30.0); Chloride 102 mmol/L (98-107); Chol/HDL Ratio 4.6 (1-3.5); Cholesterol 157 mg/dl (140-200); Estimated Glomerular Filt Rate 117 ml/min (>60); GFR (African American) 141 ML/MIN (>60); Globulin 2.8 g/dL (1.3-3.2); Glucose 206 mg/dl (74-100); HDL Cholesterol 34 mg/dl (40-60); Potassium 4.8 mmoL/L (3.5-5.1); Sodium 138 mmol/L (136-145); Total Protein,Serum 7.6 g/dl (6.3-8.2); Triglycerides 229 mg/dl (30-150); VLDL Cholesterol 46 mg/dL (0-40)
[2024-08-16 20:57] LABS: Direct LDL Cholesterol 63.94 mg/dL (100-129)
[2024-08-16 21:06] LABS: 25-OH Vitamin D, Total 116 ng/mL (30-100)
[2024-08-16 21:15] LABS: Thyroid Stimulating Hormone 1.42 uIU/mL (0.465-4.68)
== END 2024-08-16 23:59 | disposition home or self-care (01) ==
LOC: LAB.DROPOF 08-17 14:23
PROVIDERS: PCP Family Medicine; Visit Provider Family Medicine
DX: E78.5 Hyperlipidemia, unspecified (principal); I10 Essential (primary) hypertension
CPT/HCPCS: 80053; 80061; 82306; 84443; 85025

== ENCOUNTER 2025-04-07 15:01 | Outpatient (CLI) | payer OTHER, SELFPAY ==
--- OUTSIDE RECORDS SUMMARY | 2025-04-07 15:05 | XMS_ITS | Clinical Summary ---
Author Organization Healthcare Address [address] [place] [address] Care Team Providers Care Supervisor Gluing Name Role Phone Unavailable Primary Care Provider Unavailabl e Family History Medical History Relation Name Comments Cardiac disorder Brother 1 Hyperlipidemia Brother 2 Hypertension Brother 3 Heart attack Brother 4 Obesity Brother 5 Cardiac disorder Father Diabetes Father Heart attack Father Hyperlipidemia Father Hypertension Father Stroke Father Obesity Maternal Grandfather Obesity Maternal Grandmother Obesity Mother Other cancer Mother Cardiac disorder Paternal Grandfather Diabetes Paternal Grandfather Heart attack Paternal Grandfather Obesity Paternal Grandfather Cardiac disorder Paternal Grandmother Diabetes Paternal Grandmother Heart attack Paternal Grandmother Obesity Paternal Grandmother Relation Name Status Comments Brother 1 Brother 2 Brother 3 Brother 4 Brother 5 Father Maternal Grandfather Maternal Grandmother Mother Paternal Grandfather Paternal Grandmother Social History Tobacco Use Types Packs/Day Years Used Date Smoking Tobacco: Never Assessed Alcohol Use Standard Drinks/Week Comments No 0 (1 standard drink = 0.6 oz pur e alcohol) Sex and Gender Information Value Date Recorded Sex Assigned at Not on file Legal Sex Male 8:52 PM EDT Gender Identity Not on file Sexual Orientation Not on file Last Filed Vital Signs Vital Sign Reading Time Taken Comments Blood Pressure - - Pulse - - Temperature - - Respiratory Rate - - Oxygen Saturation - - Inhaled Oxygen Concentration - - Weight 113 kg (249 lb 0.2 oz) 09/20/2015 11:26 A M EDT Height 177.8 cm (5' 10 ) 09/20/2015 11:26 AM EDT Body Mass Index 35.73 09/20/2015 11:26 AM EDT Plan of Treatment Not on file
[2025-04-07 15:15] LABS: Hematocrit 40.7 % (42.0-52.0); Hemoglobin 14.1 g/dL (14.1-18.0); Immature Granulocytes % 0.3 %; Mean Corpuscular HGB Conc 34.6 g/dL (31.8-35.4); Mean Corpuscular Hemoglobin 31.1 pg (27.0-31.2); Mean Corpuscular Volume 89.8 fl (80-94); Nucleated Red Blood Cells % 0 %; Platelet Count 282 K/mm3 (142-424); Red Blood Count 4.53 M/mm3 (4.60-6.20); Red Cell Distribution Width-SD 38.5 fL; White Blood Count 7.2 K/mm3 (4.8-10.8)
[2025-04-07 15:58] LABS: Alanine Aminotransferase 41 U/L (12-78); Albumin Level 4.8 g/dl (3.5-5.0); Albumin/Globulin Ratio 1.7 (1.1-1.8); Alkaline Phosphatase 88 U/L (38-126); Anion Gap 15.6 mEq/L (5-15); Aspartate Amino Transferase 28 U/L (17-59); Bilirubin,Total 0.6 mg/dl (0.2-1.3); Blood Urea Nitrogen 17 mg/dl (9-20); Calcium 9.9 mg/dl (8.4-10.2); Carbon Dioxide 25 mmol/L (22.0-30.0); Chloride 100 mmol/L (98-107); Cholesterol 165 mg/dl (140-200); Creatinine,Serum 0.80 mg/dl (0.66-1.25); Estimated Glomerular Filt Rate 100 ml/min (>60); GFR (African American) 121 ML/MIN (>60); Globulin 2.8 g/dL (1.3-3.2); Glucose 242 mg/dl (74-100); HDL Cholesterol 39 mg/dl (40-60); Potassium 4.6 mmoL/L (3.5-5.1); Sodium 136 mmol/L (136-145); Total Protein,Serum 7.6 g/dl (6.3-8.2); Triglycerides 328 mg/dl (30-150)
[2025-04-07 16:10] LABS: Hemoglobin A1C 7.5 % (4.0-6.0)
== END 2025-04-07 23:59 | disposition home or self-care (01) ==
LOC: LAB.DROPOF 15:01
PROVIDERS: PCP Family Medicine; Visit Provider Family Medicine
DX: E11.649 Type 2 diabetes mellitus with hypoglycemia without coma (principal); I10 Essential (primary) hypertension; E78.5 Hyperlipidemia, unspecified
CPT/HCPCS: 80053; 80061; 83036; 85025; G0103